=== PATIENT | male | born 1995 | race Caucasian/White ===

== ENCOUNTER 2016-10-23 06:39 | Emergency (ER) | payer OTHER ==
[~2016-10-23] VITALS: Ht 175.3 cm; Wt 86.0 kg
[2016-10-23] MEDS ORDERED: ONDANSETRON 4MG/2ML VIAL (J2405) IV ONE (07:15)
[2016-10-23] MEDS ORDERED: KETOROLAC 30 MG/ML VIAL (J1885) IV ONE (07:15)
[2016-10-23] MEDS ORDERED: NS 1,000 ML IV ONE (07:15)
--- NOTE | 2016-10-23 07:24 | REP ---
Clinical: Headache . Comparison: None . Findings: The ventricles, sulci, and cisterns are normal in position and appearance. Price-white differentiation is maintained. No acute intracranial hemorrhage, mass/mass effect, pathology or trauma/injury. No evidence for acute infarction. No extra-axial fluid collection. Calvarium is intact. Paranasal sinuses and mastoid air cells are clear. Impression: Normal noncontrast head CT. No evidence for acute intracranial pathology or trauma/injury. Signed by Brian Hastings MD 10/23/2016 07:15 A
[2016-10-23 07:36] LABS: BASO % 0.3 % (0.0-1.0); EOS % 0.2 % (0.0-3.0); LARGE UNSTAINED CELL # 0.2 K/mm3 (0.0-0.4); LARGE UNSTAINED CELL % 3.9 % (0.0-4.0); LYMPH % 19.5 % (24.0-44.0); MEAN CORPUSCULAR HEMOGLOBIN 32.2 pg (27.0-33.0); MEAN CORPUSCULAR VOLUME 87.4 fl (80.0-96.0); MONO # 0.5 K/mm3 (0.0-0.8); MONO % 10.8 % (0.0-5.0); NEUTROPHILS # 2.9 K/mm3 (1.8-7.7); NEUTROPHILS % 65.2 % (36.0-66.0); PLATELET COUNT, AUTOMATED 135 k/mm3 (150-450); RED CELL DISTRIBUTION WIDTH 12.2 % (11.5-14.5); WHITE BLOOD COUNT 4.4 K/mm3 (4.0-10.0)
[2016-10-23 08:01] LABS: MEAN CORPUSCULAR HGB CONC 36.1 g/dl (32.0-36.5)
[2016-10-23 08:10] LABS: ANION GAP 7 MEQ/L (8-16); BLOOD UREA NITROGEN 13 MG/DL (7-18); CALCIUM LEVEL 8.3 MG/DL (8.5-10.1); CARBON DIOXIDE LEVEL 26 MEQ/L (21-32); CHLORIDE LEVEL 101 MEQ/L (98-107); CREATININE FOR GFR 1.28 MG/DL (0.70-1.30); GLOMERULAR FILTRATION RATE > 60.0 (>60); GLUCOSE, FASTING 117 MG/DL (70-105); POTASSIUM SERUM 4.2 MEQ/L (3.5-5.1); SODIUM LEVEL 134 MEQ/L (136-145)
[2016-10-23 08:27] LABS: ALBUMIN 3.6 GM/DL (3.2-5.2); ALBUMIN/GLOBULIN RATIO 1.16 (1.00-1.93); ALKALINE PHOSPHATASE 77 U/L (45-117); ALT/SGPT 49 U/L (12-78); AST/SGOT 29 U/L (15-37); BILIRUBIN,DIRECT 0.2 MG/DL (0.0-0.2); BILIRUBIN,TOTAL 0.9 MG/DL (0.2-1.0); TOTAL PROTEIN 6.7 GM/DL (6.4-8.2)
[2016-10-23] MEDS ORDERED: AUGM875T28 PO (09:11)
[2016-10-23] MEDS ORDERED: AUGMENTIN 875 MG TAB PO ONE (09:15)
[2016-10-23 09:23] VITALS: BP 121/64
[2016-10-23 09:41] LABS: ERYTHROCYTE SEDIMENTATION RATE 17 mm/hr (0-15)
== END 2016-10-23 09:29 | disposition home or self-care (01) ==
LOC: M ED 07:07
DX: J01.10 Acute frontal sinusitis, unspecified (principal)
CPT/HCPCS: 36415; 70450; 80048; 80076; 85025; 85652; 86140; 96361; 96374; 96375; 99284; J1885; J2405